=== PATIENT | female | born 1995 | race Two or more races ===

== ENCOUNTER 2024-09-28 04:25 | Emergency (ER) | payer OTHER ==
[~2024-09-28] VITALS: Ht 167.6 cm; Wt 117.8 kg
--- NOTE | 2024-09-28 05:03 | ED.PDOC ---
General HPI Comments 29-year-old female came to ER due to urinary problems. Patient states for the past few days she has been having intermittent episodes of suprapubic abdominal discomfort, fullness, associated with urinary frequency. She denies any fever nausea or vomiting. Denies any dysuria or gross hematuria. Chief Complaint: Urinary Time Seen by MD: 05:02 Reviewed notes: Nurses Notes Allergies: Coded Allergies: NO KNOWN ALLERGIES (Unverified , 09/28/24) Home Meds Active Scripts Sulfamethoxazole W/Trimethopri (Bactrim Ds Tablet) 1 Tab Tb, 1 TAB PO BID for 7 Days, #14 TAB Prov:SHIVA SALAZAR MD 09/28/24 Information Source: Patient Mode of Arrival: Ambulatory Severity: Mild Inability to void: Mild Timing: Days Duration: Intermittent Has not urinated for: Minutes Prehospital treatment: None Onset: Spontaneous Symptoms: Frequency History of: UTI Location: Suprapubic associated signs and symptoms: Abdominal Pain, Frequency Past Medical History PAST MEDICAL HISTORY: UTI'S Surgical History: Denies all surgeries AMBULATORY NURSE History: Denies all AMBULATORY NURSE Hx Family History Family History: Reviewed,noncontributory to illness Social History Smoker: Non-Smoker Alcohol: Denies ETOH Use Drugs: Denies Drug Use Lives In: Home Constitutional: denies: chills, diaphoresis, fatigue, fever, malaise, sweats, weakness, others EENTM: denies: blurred vision, double vision, ear bleeding, ear discharge, ear drainage, ear pain, ear ringing, eye pain, eye redness, hearing loss, mouth pain, mouth swelling, nasal discharge, nose bleeding, nose congestion, nose pain, photophobia, tearing, throat pain, throat swelling, voice changes, others Respiratory: denies: cough, hemoptysis, orthopnea, SOB at rest, shortness of breath, SOB with excertion, stridor, wheezing, others Cardiovascular: denies: chest pain, dizzy spells, diaphoresis, Dyspnea on exertion, edema, irregular heart beat, left arm pain, lightheadedness, palpitations, PND, syncope, others Gastrointestinal: reports: abdominal pain (Suprapubic); denies: abdomen dist ended, blood streaked bowels, constipated, diarrhea, dysphagia, difficulty swallowing, hematemesis, melena, nausea, poor appetite, poor fluid intake, rectal bleeding, rectal pain, vomiting, others Genitourinary: reports: frequency; denies: abnormal vagina bleeding, burning, dyspareunia, dysuria, flank pain, hematuria, incontinence, pain, , vagina discharge, urgency, others Neurological: denies: dizziness, fainting, headache, left sided numbness, left sided weakness, numbness, paresthesia, pre-existing deficit, right sided numbness, right sided weakness, seizure, speech problems, tingling, tremors, weakness, others Musculoskeletal: denies: back pain, gout, joint pain, joint swelling, muscle pain, muscle stiffness, neck pain, others Integumetry: denies: bruises, change in color, change in hair/nails, dryness, laceration, lesions, lumps, rash, wounds, others Allergic/Immunocompromised: denies: Difficulty Healing, Frequent Infections, Hives, Itching, others Hematologic/Lymphatic: denies: anemia, blood clots, easy bleeding, easy bruising, swollen glands, others Endocrine: denies: excessive hunger, excessive sweating, excessive thirst, excessive urination, flushing, intolerance to cold, intolerance to heat, unex plained weight gain, unexplained weight loss, others Psychiatric: denies: anxiety, bipolar disorder, depression, hopeless, panic disorder, schizophrenia, sleepless, suicidal, others Physical Exam General Appearance: No Apparent Distress, Normal HEENT: Normal ENT Inspection, Pharynx Normal, TMs Normal Neck: Full Range of Motion, Non-Tender, Normal, Normal Inspection Respiratory: Chest Non-Tender, Lungs Clear, No Accessory Muscle Use, No Respiratory Distress, Normal Breath Sounds Cardiovascular: No Edema, No JVD, No Murmur, No Gallop, Normal Peripheral Pulses, Regular Rate/Rhythm Breast Exam: Deferred Gastrointestinal: No Organomegaly, Non Tender, No Pulsatile Mass, Normal Bowel Sounds, Soft Genitalia: Deferred Pelvic: Deferred Rectal: Deferred Extremities: No calf tenderness, Normal capillary refill, Normal inspection, Normal range of motion, Non-tender, No pedal edema Musculoskeletal : Apperance: Normal Neurologic: Alert, cable operator II-XII nml as Tested, No Motor Deficits, Normal Affect, Normal Mood, No Sensory Deficits Cerebellar Function: Normal Reflexes: Normal Skin: Dry, Normal Color, Warm Lymphatic: No Adenopathy Was a procedure done? Was a procedure done?: No Differential Diagnosis Kidney stone (Female): N/A Urinary Problem (Female): Intrauterine , Pyelonephritis, Urinary retention, Urolithiasis, UTI, Vaginitis X-Ray, Labs, Meds, VS Vital Signs Date Time Temp Pulse Resp B/P (MAP) Pulse Ox O2 Delivery O2 Flow Rate FiO2 09/28/24 05:35 98.0 91 16 124/75 (91) 98 98.0 09/28/24 05:30 Room Air* 0 21 09/28/24 04:37 97.8 95 18 128/82 (97) 97 Lab Test 09/28/24 04:46 Range/Units Urine Color Dark-yellow Yellow Urine Clarity Turbid H Clear Urine pH 6.5 5.0-9.0 Urine Specific [place] 1.019 1.001-1.035 Urine Protein Trace H Negative Urine Ketones Negative Negative Urine Blood 3+ H Negative /uL Urine Nitrite 1+ H Negative Urine Bilirubin 1+ H Negative Urine Urobilinogen 3 H Negative mg/dL Urine Leukocyte Esterase 3+ Negative /uL Urine RBC 1631 0 - 4 /hpf Urine WBC 160 0 - 5 /hpf Urine Squamous Epithelial Cells Few <5 /hpf Urine Bacteria None seen None Seen /hpf Urine Glucose Normal Normal mg/dL Current Medications Medications (Trade) Dose Ordered Sig/[place] Route Start Time Stop Time Status Last Admin Trimethoprim/ Sulfamethoxazole (Bactrim Ds Tablet) 1 tab ONCE ONCE PO 09/28/24 05:30 09/28/24 05:31 DC 09/28/24 05:36 Time of 1ST Reevaluation: 05:00 Reevaluation 1ST: Unchanged Patient Education/Counseling: Diagnosis, Treatment Family Education/Counseling: No Family Present Departure 1 Departure Time of Disposition: 05:15 Impression: Primary Impression: Acute UTI (urinary tract infection) Disposition: 01 HOME / SELF CARE / HOMELESS Condition: Stable e-Prescriptions Sulfamethoxazole W/Trimethopri (Bactrim Ds Tablet) 1 Tab Tb 1 TAB PO BID for 7 Days, #14 TAB Prov: SHIVA SALAZAR MD 09/28/24 Discharged With: Self Critical Care Note Critical Care Time?: No Stability Stability form required: No Heart Score Heart Score: Heart Score Response (Comments) Value History N/A 0 EKG N/A 0 Age N/A 0 Risk Factors N/A 0 Troponin N/A 0 Total 0 I personally scribed for SHIVA SALAZAR MD ([email or web address]) on 09/28/24 at 05:03. Electronically submitted by Jamin Paul ([email or web address]). SHIVA SALAZAR MD Sep 28, 2024 05:03
[2024-09-28 05:11] LABS: Urine Bacteria None Seen /hpf (None Seen)
[2024-09-28 05:17] LABS: Urine Blood 3+ /uL (Negative); Urine Clarity Turbid (Clear); Urine Color Dark-Yellow (Yellow); Urine Protein, UAD TRACE (Negative); Urine Specific Gravity 1.019 (1.001-1.035); Urine Urobilinogen 3 mg/dL (Negative); Urine WBC 160 /hpf (0 - 5); Urine pH 6.5 (5.0-9.0)
[2024-09-28] MEDS ORDERED: BACDST PO (05:27)
[2024-09-28 05:35] VITALS: BP 124/75; PULSE 91; RESP 16; TEMP 98; O2SAT 98
[2024-09-28] MEDS: SULFAMETHOX W/TRIMETH(800/160MG) DS TAB PO ONE (05:36)
== END 2024-09-28 05:38 | disposition home or self-care (01) ==
LOC: ER 04:25
DX: N39.0 Urinary tract infection, site not specified (principal)
CPT/HCPCS: 81001

== ENCOUNTER 2024-11-06 20:04 | Emergency (ER) | payer OTHER ==
[~2024-11-06] VITALS: Ht 167.6 cm; Wt 115.6 kg
[~2024-11-06 20:04] MED LIST: BACDST PO
--- NOTE | 2024-11-06 20:55 | DVH ---
CHEST RADIOGRAPH Indication: CP Technique: Single frontal view of the chest was obtained Comparison: None FINDINGS: Lines and Tubes: None Lungs: Right lower lung zone opacity Pleura: No effusion. No pneumothorax. Cardiomediastinal contours: Unremarkable Bones: No acute osseous abnormality. IMPRESSION: Right lower lung zone pneumonia/atelectasis.
--- NOTE | 2024-11-06 21:16 | ED.PDOC ---
History of Present Illness HPI Comments 29 y/o F, with a Hx of UTI's, presents with c/o palpitations, today. Patient endorses on onset of symptoms, intermittently, since, yesterday, following recent urgent care visit then, where she was diagnosed with strep throat and placed on Abx. She reports further on being ill for the past 2x days prior with a fever then that has subsided since. She denies having any chest pain, shortness of breath, or any additional associated symptoms or modifiers at this time. Chief Complaint: Palpitations Time Seen by MD: 20:30 Reviewed Notes: Nurses Notes, Medications, Allergies Allergies: Coded Allergies: NO KNOWN ALLERGIES (Unverified , 09/28/24) Home Meds Active Scripts Sulfamethoxazole W/Trimethopri (Bactrim Ds Tablet) 1 Tab Tb, 1 TAB PO BID for 7 Days, #14 TAB Prov:SHIVA SALAZAR MD 09/28/24 Information Source: Patient Mode of Arrival: Ambulatory Past Medical History PAST MEDICAL HISTORY: UTI'S Surgical History: Denies all surgeries DENTIST/OWNER History: Denies all DENTIST/OWNER Hx Family History Family History: Reviewed,noncontributory to illness Social History Smoker: Non-Smoker Alcohol: Denies ETOH Use Drugs: Denies Drug Use Lives In: Home Cardiovascular: reports: palpitations All Other Systems: Reviewed and Negative (negative unless otherwise stated above or in HPI) Physical Exam General Appearance: Cachectic, Moderate Distress, Obese HEENT: Normal ENT Inspection, TMs Normal, Other (Bilateral tonsils enlarged without exudate) Neck: Full Range of Motion, Non-Tender, Normal, Normal Inspection Respiratory: Chest Non-Tender, Lungs Clear, No Accessory Muscle Use, No Respiratory Distress, Normal Breath Sounds Cardiovascular: No Edema, No JVD, No Murmur, No Gallop, Normal Peripheral Pu lses, Tachycardia Breast Exam: Deferred Gastrointestinal: No Organomegaly, Non Tender, No Pulsatile Mass, Normal Bowel Sounds, Soft Genitalia: Deferred Pelvic: Deferred Rectal: Deferred Extremities: No calf tenderness, Normal capillary refill, Normal inspection, Normal range of motion, Non-tender, No pedal edema Musculoskeletal : Apperance: Normal Neurologic: Alert, neck fitter II-XII nml as Tested, No Motor Deficits, Normal Affect, Normal Mood, No Sensory Deficits Cerebellar Function: Normal Reflexes: Normal Skin: Dry, Normal Color, Warm Lymphatic: No Adenopathy Was a procedure done? Was a procedure done?: No EKG EKG : Pulse Rate (adult): 119 [place]: Normal Cardiac Rhythm: ST Block: None Hypertrophy: None ST: Normal Differential Dx Considerations may include: viral syndrome, strep throat, arrhythmia, tachycardia X-Ray, Labs, Meds, VS Vital Signs Date Time Temp Pulse Resp B/P (MAP) Pulse Ox O2 Delivery O2 Flow Rate FiO2 11/06/24 21:29 114 11/06/24 21:15 119 11/06/24 20:10 119 11/06/24 20:10 101.0 134 18 125/83 (97) 95 Lab Test 11/06/24 21:59 11/06/24 20:57 Range/Units Troponin I High Sensitivity < 3 L < 3 L </=34 ng/L White Blood Count 18.1 H 4.4-10.8 10^3/uL Red Blood Count 5.72 H 4.0-5.20 10^6/uL Hemoglobin 14.4 12.2-16.2 g/dL Hematocrit 44.6 36.0-46.0 % Mean Corpuscular Volume 78.0 L 80.0-100.0 fL Mean Corpuscular Hemoglobin 25.2 L 28.0-32.0 pg Mean Corpuscular Hemoglobin Concent 32.4 32.0-36.0 g/dL Red Cell Distribution Width 15.5 H 11.8-14.3 % Platelet Count 307 140-450 10^3/uL Mean Platelet Volume 9.3 6.9-10.8 fL Neutrophils (%) (Auto) 72.6 37.0-80.0 % Lymphocytes (%) (Auto) 15.8 10.0-50.0 % Monocytes (%) (Auto) 9.7 0.0-12.0 % Eosinophils (%) (Auto) 1.4 0.0-7.0 % Basophils (%) (Auto) 0.5 0.0-2.0 % Neutrophils # (Auto) 13.2 H 1.6-8.6 10 ^3/uL Lymphocytes # (Auto) 2.9 0.4-5.4 10 ^3/uL Monocytes # (Auto) 1.8 H 0-1.3 10 ^3/uL Eosinophils # (Auto) 0.3 0-0.8 10 ^3/uL Basophils # (Auto) 0.1 0-0.2 10 ^3/uL Nucleated Red Blood Cells 0.0 % Prothrombin Time 10.9 9.3-11.8 sec Prothrombin Time INR 1.03 0.9-1.15 Activated Partial Thromboplast Time 31.1 24.5-34.5 SEC Sodium Level 140 136-145 mmol/L Potassium Level 4.1 3.5-5.1 mmol/L Chloride Level 106 98-107 mmol/L Carbon Dioxide Level 28 20-31 mmol/L Anion Gap 6 5-15 Blood Urea Nitrogen 10 9-23 mg/dL Creatinine 0.83 0.550-1.02 mg/dL Glomerular Filtration Rate Calc 97 >90 mL/min BUN/Creatinine Ratio 12.0 10.0-20.0 Serum Glucose 131 H 74-106 mg/dL Calcium Level 10.1 8.7-10.4 mg/dL Magnesium Level 1.9 1.6-2.6 mg/dL Total Bilirubin 0.5 0.2-1.0 mg/dL Aspartate Amino Transferase (AST) 17 13-40 U/L Alanine Aminotransferase (ALT) 40 7-40 U/L Alkaline Phosphatase 92 46-116 U/L B-Type Natriuretic Peptide 1.59 0-100 pg/mL Total Protein 7.2 5.7-8.2 g/dL Albumin 4.3 3.2-4.8 g/dL [place] [id number] Ph: [phone] DIAGNOSTIC IMAGING Diagnostic Imaging Report : [id number] Signed PATIENT: ABHIJEET WILKINS ACCT: [id number] UNIT: [id number] : 1995 LOC: ER ROOM / BED: / AGE / SEX: 29 / F ADM STATUS: REG ER SERVICE 10 ORDERING PHYSICIAN: BLANKA NAVARRO DO PROCEDURE(s): CXRP - CHEST PORTABLE REASON: CP ORDER NUMBER(s): [id number], ACCESSION NUMBER(s): [id number] CHEST RADIOGRAPH Indication: CP Technique: Single frontal view of the chest was obtained Comparison: None FINDINGS: Lines and Tubes: None Lungs: Right lower lung zone opacity Pleura: No effusion. No pneumothorax. Cardiomediastinal contours: Unremarkable Bones: No acute osseous abnormality. IMPRESSION: Right lower lung zone pneumonia/atelectasis. ATED BY: VERENA OSORIO DO DICTATED DATE/TIME: 11/06/242051 SIGNED BY: VERENA OSORIO DO SIGNED DATE/TIME: 11/06/242051 CC: Patient has tonsillitis on physical exam and spike [place] [address] Clindamycin 900 mg IV was administered along with Solu-Medrol 250 mg IV. The patient will be discharged with clindamycin prescription. Time of 1ST Reevaluation: 21:00 Reevaluation 1ST: Unchanged Patient Education/Counseling: Diagnosis, Treatment Family Education/Counseling: No Family Present Departure 1 Departure Time of Disposition: 00:03 Impression: Primary Impression: Palpitations Additional Impression: Tonsillitis Disposition: HOME / SELF CARE / HOMELESS Condition: Stable Additional Instructions: Reassessed patient, vital signs stable. Denies any new symptoms. Patient is able to tolerate PO and ambulate/be mobile at their baseline without concern. Risks and benefits of all medications given or prescribed, if any, discussed. All lab work, imaging and diagnostic studies were reviewed by me. The patient was counseled extensively on my clinical impression, diagnosis, expected course of the disease, and plan, including their follow-up care. Will discharge patient. Patient instructed to follow up with Primary Care Physician within 24-48 hours. Strict return precautions given for further exacerbation of symptoms or for new symptoms. The patient was given the opportunity to ask questions and all questions were answered by myself and the nursing/tech staff. Patient is in agreement with the care plan. The patient verbally expressed understanding of the discharge instructions, including the reasons to return to the Emergency Department. Swish and swallow with salt water e-Prescriptions Clindamycin Hcl (Clindamycin Hcl) 300 Mg Cap 1 CAP PO TID, #30 CAP Prov: ANNIA JEWELL MD 11/07/24 Discharged With: Self Critical Care Note Critical Care Time?: No Stability Stability form required: No Heart Score Heart Score: Heart Score Response (Comments) Value History Slightly Suspicious 0 EKG Normal 0 Age <45 0 Risk Factors No known risk factors 0 Troponin Normal limit 0 Total 0 I personally scribed for ANNIA JEWELL MD ([email or web address]) on 11/06/24 at 21:15. Electronically submitted by Martinez Patricia ([email or web address]). I personally scribed for ANNIA JEWELL MD ([email or web address]) on 11/06/24 at 21:19. Electronically submitted by Martinez Patricia ([email or web address]). I personally scribed for ANNIA JEWELL MD ([email or web address]) on 11/06/24 at 23:57. Electronically submitted by Martinez Patricia ([email or web address]). ANNIA JEWELL MD Nov 06, 2024 21:15
[2024-11-06 21:40] LABS: Alanine Aminotransferase 40 U/L (7-40); Albumin 4.3 g/dL (3.2-4.8); Alkaline Phosphatase 92 U/L (46-116); Anion Gap 6 (5-15); Aspartate Aminotransferase 17 U/L (13-40); Blood Urea Nitrogen 10 mg/dL (9-23); Calcium 10.1 mg/dL (8.7-10.4); Carbon Dioxide 28 mmol/L (20-31); Chloride 106 mmol/L (98-107); Magnesium 1.9 mg/dL (1.6-2.6); Potassium 4.1 mmol/L (3.5-5.1); Sodium 140 mmol/L (136-145)
[2024-11-06 21:41] LABS: Basophils # (auto) 0.1 10 ^3/uL (0-0.2); Basophils % (auto) 0.5 % (0.0-2.0); Bilirubin, Total 0.5 mg/dL (0.2-1.0); Eosinophils # (auto) 0.3 10 ^3/uL (0-0.8); Eosinophils % (auto) 1.4 % (0.0-7.0); Hematocrit 44.6 % (36.0-46.0); Hemoglobin 14.4 g/dL (12.2-16.2); Lymphocytes # (auto) 2.9 10 ^3/uL (0.4-5.4); Lymphocytes % (auto) 15.8 % (10.0-50.0); Mean Corpuscular Hemoglobin 25.2 pg (28.0-32.0); Mean Corpuscular Hgb Conc. 32.4 g/dL (32.0-36.0); Monocytes # (auto) 1.8 10 ^3/uL (0-1.3); Monocytes % (auto) 9.7 % (0.0-12.0); Neutrophils # (auto) 13.2 10 ^3/uL (1.6-8.6); Neutrophils % (auto) 72.6 % (37.0-80.0); Platelet Count (auto) 307 10^3/uL (140-450); Red Blood Cells 5.72 10^6/uL (4.0-5.20); Red Cell Distribution Width 15.5 % (11.8-14.3); Total Protein 7.2 g/dL (5.7-8.2); White Blood Cell 18.1 10^3/uL (4.4-10.8)
[2024-11-06 21:43] LABS: Glucose 131 mg/dL (74-106); INR 1.03 (0.9-1.15); Partial Thromboplastin Time 31.1 SEC (24.5-34.5); Prothrombin Time 10.9 sec (9.3-11.8)
--- NOTE | 2024-11-06 23:10 | ECG ---
[facility] Test Date: 2024-11-06 Test Time: 20:10:05 Pat Name: ABHIJEET WILKINS Department: ED Room: Gender: F Brooch Maker Novelty: RICARDO : 1995 Requested By: BLANKA NAVARRO Order Number: [id number] Reading MD: Sung Perea Measurements Intervals [place] Rate: 119 P: 48 DC: 137 QRS: 66 QRSD: 96 T: 28 QT: 306 QTc: 431 Interpretive Statements Sinus tachycardia RSR' in V1 or V2, right VCD or RVH Electronically Signed On 11-08-2024 10:21:12 PST by Sung Perea Please click the below link to view image of tracing.
--- NOTE | 2024-11-06 23:11 | ECG ---
[facility] Test Date: 2024-11-06 Test Time: 21:29:27 Pat Name: ABHIJEET WILKINS Department: ED Room: Gender: F Hull Inspector: TEA : 1995 Requested By: BLANKA NAVARRO Order Number: [id number] Reading MD: Sung Perea Measurements Intervals [place] Rate: 114 P: 36 MS: 134 QRS: 14 QRSD: 100 T: 23 QT: 318 QTc: 438 Interpretive Statements Sinus tachycardia Electronically Signed On 11-08-2024 10:21:38 PST by Sung Perea Please click the below link to view image of tracing.
[2024-11-07] MEDS ORDERED: CLIN1CAP70 PO (00:05)
[2024-11-07 03:15] VITALS: BP 128/68; PULSE 76; RESP 18; RESP 19; TEMP 97.7; O2SAT 98
[2024-11-07] MEDS: CLINDAMYCIN 900MG IV 50 ML IV ONE (03:55)
[2024-11-07] MEDS: methylPREDNISolone SOD SUCC 125 MG/2 ML VL IV ONE (03:56)
== END 2024-11-07 03:53 | disposition home or self-care (01) ==
LOC: ER 20:04
DX: R00.2 Palpitations (principal); D69.6 Thrombocytopenia, unspecified; R06.02 Shortness of breath; Z79.899 Other long term (current) drug therapy; Z87.440 Personal history of urinary (tract) infections
CPT/HCPCS: 36415; 71045; 80053; 83735; 83880; 84484; 85025; 85610; 85730; 93005; 96365; J3490